=== PATIENT | female | born 1950 | race Hispanic/Latino ===

== ENCOUNTER → 2017-11-03 | Outpatient (CLI) | payer OTHER | LOC: CARD 08:47 | PROVIDERS: ATTEND Family Medicine | DX: R09.89 Other specified symptoms and signs involving the circulatory and respiratory systems (principal) | CPT/HCPCS: 93880 ==

== ENCOUNTER 2018-08-17 14:57 | Inpatient (IN) | payer MEDICARE, OTHER ==
[~2018-08-17] VITALS: Ht 157.5 cm; Wt 68.7 kg
[2018-08-17] MEDS ORDERED: VANCOMYCIN 1GM/NS 250 ML 250 ML IV SCH (15:45)
[2018-08-17] MEDS ORDERED: PIPER-TAZ 3.375 GM 50 ML IV ONE (16:00)
--- NOTE | 2018-08-17 16:27 | Diagnostic Imaging Report ---
FOOT RIGHT COMPLETE - 3 views HISTORY: Infection. Osteomyelitis. COMPARISON: None available. FINDINGS: Bones: No acute displaced fracture. Osseous alignment is within normal limits. Joints: Mild hallux valgus deformity. Degenerative changes of the first metatarsophalangeal joint. Mild degenerative changes of the tarsal joints. Soft tissues: No acute abnormality. IMPRESSION: 1. No acute abnormality. If concern for osteomyelitis remains, consider MRI for further evaluation. 2. Degenerative changes of the first metatarsophalangeal joint. Mild degenerative changes of the tarsal joints. 3. Mild hallux valgus deformity. Signed by: Dr. Guillermo Ocampo M.D. on 08/17/2018 4:23 PM
[2018-08-17] MEDS ORDERED: IBUPROFEN 600 MG TAB PO ONE (17:00)
[2018-08-17 17:08] LABS: BASOPHILS % 0.2 % (0.0-1.0); EOSINOPHILS # (AUTO) 0.1 (0.0-0.4); EOSINOPHILS % 0.7 % (0.0-6.0); HEMATOCRIT 35.9 % (34.2-44.1); LYMPHOCYTES # (AUTO) 0.5 (1.0-3.2); LYMPHOCYTES % 6.2 % (18.0-39.1); MEAN CORPUSCULAR HEMOGLOBIN 29.9 pg (28-32); MEAN CORPUSCULAR HGB CONC 33.4 g/dL (31-35); MEAN CORPUSCULAR VOLUME 89.5 fL (81-99); MONOCYTES # (AUTO) 0.4 (0.2-0.8); MONOCYTES % 5.4 % (4.4-11.3); NEUTROPHILS % 87.3 % (38.7-80.0); PLATELET COUNT 282 x10e3/uL (140-360); RED BLOOD COUNT 4.01 x10e6/uL (3.6-5.1); RED CELL DISTRIBUTION WIDTH 12.6 % (11.7-14.4)
[2018-08-17 17:19] LABS: CLARITY,URINE HAZY (CLEAR); COLOR,URINE YELLOW (YELLOW); KETONES,URINE NEGATIVE (NEGATIVE); LEUKOCYTE ESTERASE ,URINE TRACE (NEGATIVE); NITRITE,URINE NEGATIVE (NEGATIVE); PROTEIN,URINE DIPSTICK TRACE (NEGATIVE)
[2018-08-17 17:20] LABS: BILIRUBIN,URINE 1+ (NEGATIVE); URINE UROBILINOGEN 1 mg/dL (0.2 - 1)
[2018-08-17 17:20] LABS: INR 0.96; PROTHROMBIN TIME 13.7 seconds (11.9-14.5)
[2018-08-17 17:21] LABS: PARTIAL THROMBOPLASTIN TIME 35.3 seconds (23.8-35.5)
[2018-08-17 17:21] LABS: BACTERIA,URINE MODERATE /HPF; EPITHELIAL CELLS,URINE FEW /LPF; RBC,URINE 0-5 /HPF (0-5)
[2018-08-17 17:30] LABS: ALANINE AMINOTRANSFERASE 7 IU/L (0-55); ALBUMIN 3.6 g/dL (3.5-5.0); ALBUMIN/GLOBULIN RATIO 0.9 (0.8-2.0); ALKALINE PHOSPHATASE 82 IU/L (40-150); ANION GAP 14.4 mmol/L (8-16); BLOOD UREA NITROGEN 21 mg/dL (7-26); BUN/CREATININE RATIO 15 (6-25); CALCIUM 9.3 mg/dL (8.4-10.2); CARBON DIOXIDE 27 mmol/L (22-29); CHLORIDE 97 mmol/L (98-107); CREATINE KINASE 343 IU/L (29-168); EST GLOMERULAR FILTRATION RATE 38 ML/MIN (60-); GLUCOSE 182 mg/dL (74-118); MAGNESIUM 1.8 MG/DL (1.3-2.1); POTASSIUM 3.4 mmol/L (3.5-5.1); SODIUM 135 mmol/L (136-145)
[2018-08-17 17:37] LABS: B-TYPE NATRIURETIC PEPTIDE2 27.5 pg/mL (0-100)
[2018-08-17] MEDS ORDERED: ONDANSETRON HCL INJ 2MG/ML 2ML 2 MG/ML VIAL IV PRN (18:00)
[2018-08-17] MEDS ORDERED: KCL 20MEQ/.9 SOD CHL 1,000 ML IV ONE (18:00)
[2018-08-17] MEDS ORDERED: DEXTROSE 50% SYRINGE 50 ML IV PRN (18:00)
--- OUTSIDE RECORDS SUMMARY | 2018-08-17 18:22 | XMS REPORT ---
Author Author [facility] Address Unknown Phone Unavailable Care Team Providers Care Customer Consulting Manager Name Role Phone Justina ONEIL Unavailable Unavailable Problems This patient has no known problems. Allergies, Adverse Reactions, Alerts This patient has no known allergies or adverse reactions. Medications This patient has no known medications. Results Test Description Test Time Test Comments Text Results Atomic Results Result Comments FOOT RIGHT COMPLETE 2018-08-17 16:16:00 [place] [address] Patient Name: LUIS ANGEL LOZANO MR #: [id number] : 1950 Age/Sex: 68/F Req #: [id number] Adm Physician: Ordered by: MANI GARCÍA RETRIEVAL SPECIALIST Report #: [id number] Location: ER Room/Bed: Procedure: [id number] DX/FOOT RIGHT COMPLETE Exam Date: Exam Time: REPORT STATUS: Signed FOOT RIGHT COMPLETE - 3 views HISTORY: Infection. Osteo myelitis. COMPARISON: None available. FINDINGS: Bones: No acute displaced fracture. Osseous alignment is within normal limits. Joints: Mild hallux valgus deformity. Degenerative changes of the first metatarsophalangeal joint. Mild degenerative changes of the tarsal joints. Soft tissues: No acute abnormality. IMPRESSION: 1. No acute abnormality. If concern for osteomyelitis remains, consider MRI for further evaluation. 2. Degenerative changes of the first metatarsophalangeal joint. Mild degenerative changes of the tarsal joints. 3. Mild hallux valgus deformity. Signed by: Dr. Guillermo Guadarrama M.D. on 08/17/2018 4:23 PM Dictated By: PRINCESS GUADARRAMA MD, MD [id number] Transcribed By: SAMMY on 08/17/181622 COPY TO: MANI GARCÍA NP
--- NOTE | 2018-08-17 20:19 | NUR ---
patient instructed to bring home medications, does not know list off hand. no ext med history available
[2018-08-17 20:24] VITALS: BP 104/60
[2018-08-17 20:45] VITALS: BP 104/60
--- NOTE | 2018-08-17 20:45 | NUR ---
Pt admitted to room 292 via stretcher. A&Ox3. Sinhala Speaking. Vs stable. Skin warm and dry. Glasses fixed to face. Diabetic foot ulcer right foot between 2nd and 3rd digits, min drainage, foul odor. Denies pain at this time. 20g IV left AC, patent. Lungs CTA. Cap refill <3 seconds. +2 Equal bilateral remote sensing technologist. Steady gait. Bowels active x4 quads. Last BM 08/17/18. Oriented to room. Call to within reach. Family at bedside. No acute distress noted. Will continue to monitor.
[2018-08-17] MEDS: INSULIN LISPRO 100 UNIT/1 ML 3ML VIAL SQ SCH (21:45)
[2018-08-17] MEDS ORDERED: SODIUM CHLORIDE 0.9% 250ML 250 ML ONE (21:46)
[2018-08-17] MEDS ORDERED: KCL 20MEQ/.9 SOD CHL 1,000 ML IV SCH (22:00)
--- NOTE | 2018-08-17 22:45 | NUR ---
Dr. Gibbs ordered dry dressing, will visit tomorrow. Ordered wound care consult.
[2018-08-17] MEDS ORDERED: AMLODIPINE BESYL5 MG PO (22:58)
[2018-08-17] MEDS ORDERED: LEVOTHYROXINE75 MCG PO (22:58)
[2018-08-17] MEDS ORDERED: PRAVASTATIN SOD20 MG (22:58)
[2018-08-17] MEDS ORDERED: LISINOPRIL10 MG PO (22:58)
[2018-08-17] MEDS ORDERED: NOVOLOG100 UNITS1 (22:58)
[2018-08-17] MEDS: PIPERACILLIN/TAZO 2.25 GM 50 ML IV SCH (23:45)
[2018-08-18] VITALS (8 sets, daily range): BP systolic 106–120; BP diastolic 56–68
[2018-08-18] MEDS: PIPERACILLIN/TAZO 2.25 GM 50 ML IV SCH ×3 (05:27→11:33)
[2018-08-18 05:43] LABS: BASOPHILS % 0.4 % (0.0-1.0); EOSINOPHILS # (AUTO) 0.1 (0.0-0.4); EOSINOPHILS % 1.2 % (0.0-6.0); HEMATOCRIT 31.2 % (34.2-44.1); HEMOGLOBIN 10.8 g/dL (12.0-16.0); LYMPHOCYTES # (AUTO) 0.4 (1.0-3.2); LYMPHOCYTES % 6.6 % (18.0-39.1); MEAN CORPUSCULAR HGB CONC 34.6 g/dL (31-35); MEAN CORPUSCULAR VOLUME 89.7 fL (81-99); MONOCYTES # (AUTO) 0.4 (0.2-0.8); MONOCYTES % 7.8 % (4.4-11.3); NEUTROPHILS # (AUTO) 4.7 (2.1-6.9); NEUTROPHILS % 83.6 % (38.7-80.0); PLATELET COUNT 219 x10e3/uL (140-360); RED BLOOD COUNT 3.48 x10e6/uL (3.6-5.1); RED CELL DISTRIBUTION WIDTH 12.7 % (11.7-14.4)
[2018-08-18 06:15] LABS: ALBUMIN 2.9 g/dL (3.5-5.0); ALBUMIN/GLOBULIN RATIO 0.9 (0.8-2.0); ANION GAP 12.9 mmol/L (8-16); CALCIUM 8.5 mg/dL (8.4-10.2); CREATININE, SERUM 1.47 mg/dL (0.57-1.11); POTASSIUM 3.9 mmol/L (3.5-5.1)
[2018-08-18] MEDS: INSULIN LISPRO 100 UNIT/1 ML 3ML VIAL SQ SCH ×4 (08:00→21:40)
[2018-08-18] MEDS: ASPIRIN 81 MG ENTERIC COATED PO SCH (08:58)
[2018-08-18] MEDS ORDERED: VANCOMYCIN 1GM/NS 250 ML 250 ML IV SCH (09:00)
--- NOTE | 2018-08-18 11:27 | NUR ---
WOUND CARE CONSULTATION - INITIAL EVALUATION Admitted to ER from Home for new onset of Right Foot wound with cellulitis of foot and renal insufficiency. HX: DM, OM+ of Left Foot 2nd toe. WBC5.63 HGB10.8 HCT31.2 NEUT%83.6 LAB203 ALB2.9 IMAGING: -X-Ray of Foot - Inconclusive for OM, Degenerative changes of 1st Met Joint and tarsal joints. WC CONSULTED for Right Foot Wound: -Greek Speaking -Patient noticed ulcer after showering and has been progressively getting worse. Does not know how it happened. -ADA Diet -IV ABX -BS 21 - Conservative PUP -Ambulatory/ Independent -Continent B/B. - Right foot -3rd toe annular ulcer 3g4x5kk with thick/ loose slough. - Probes to bone/ joint. - Edematous Toe, - Periwound macerated, - Redness extends to metatarsals at dorsal foot - Right Foot hot to touch compared to left foot. - Strong Pedal pulses bilaterally, Hair growth same for both feet. - Numbness to Right Hallux and Left 2nd-4th toes. IMPRESSION: Right Foot 3rd Toe ( 3rd Webspace) DFU Grade 3. RECOMMENDATION: 1. Right Foot 3rd Toe (3rd Webspace)DFU Grade 3- - Cleanse wound with NS and 4x4 Gauze - Apply Maxsorb Ag+ and Cover with 4x4 Gauze Daily. 2. Wound Culture 3. Continue Conservative Pressure Ulcer Prevention Protocol. Thank you for consulting with Wound Care. Addendum: 08/18/18 at 1146 by Jake Ledesma RN Amended: Links added.
[2018-08-18] MEDS: PIPER-TAZ 3.375 GM 50 ML IV SCH ×2 (12:02→21:40)
[2018-08-18] MEDS: LACTATED RINGER'S 1,000 ML IV SCH (12:03)
[2018-08-18] MEDS ORDERED: LACTULOSE SYRUP 20 GM/30 ML UDC PO ONE (12:30)
--- NOTE | 2018-08-18 13:19 | NUR ---
Nutrition Screen Note RD Recommendation for Physician: -Continue ADA diet as ordered Plan of Care: RD following, monitoring for tolerance and adequacy Nutrition reason for involvement: Nutrition Risk Trigger MST Primary Diagnose(s): diabetic foot ulcer PMH: DM, OM+ of Left Foot 2nd toe. Ht: 62in Wt: 150lb BMI: 27.4kg/m2 IBW: 110lb RD Assessment: (08/18/2018) Chart reviewed. Labs and meds reviewed. 68yo F, who is admitted for new onset of right foot wound with cellulitis of foot and renal insufficiency. Visited pt in the room. Citizen Of [place] speaking only; RN helped to translate. Pt reports good appetite with no change in PO intake RESEARCH AND DEVELOPMENT SCIENTIST. However, pt has lost ~15-20lbs in the past month. Pt states she doesnt know why she keeps losing weight. UBW ~170lbs. No GI complains noted. LBM 08/13, pt reports hx of chronic constipation and only has a BM every 6-7 days. No chewing or swallowing difficulty noted. No muscle or fat loss upon NFPA. Will continue to monitor and follow. Current Diet: ADA diet Malnutrition Evaluation (08/18/2018) The patient does not meet criteria for a specified degree of malnutrition at this time. Will re-evaluate at follow-up as appropriate. . Energy intake: No change Weight loss: >5% in 1 month (Acute) Fat loss: None upon NFPA Muscle loss: None upon NFPA Supporting Evidence: Fluid accumulation: unable to evaluate Functional Status: no changes Diet Education Needs Assessment: Diet education not indicated. Nutrition Care Level: low Signed: Aleksandra Wells, MS, RD, LD
[2018-08-18] MEDS ORDERED: ACETAMINOPHEN 325 MG TAB PO PRN (16:30)
--- NOTE | 2018-08-18 16:36 | Diagnostic Imaging Report ---
EXAM: Renal Ultrasound INDICATION: Renal failure COMPARISON: None TECHNIQUE: Transverse and longitudinal images of the kidneys and bladder were obtained. FINDINGS: Right Kidney: Length: Measures 10.0 x 4.1 x 5.4 cm Appearance: Normal echogenicity. Collecting system: No hydronephrosis Stones: None Cyst/Mass: None Left Kidney: Length: Measures 9.9 x 5.3 x 4.2 cm Appearance: Normal echogenicity. Collecting system: No hydronephrosis Stones: None Cyst/Mass: None Bladder: Unremarkable appearance. No ureteral jets are visualized. IMPRESSION: Unremarkable renal ultrasound. No evidence of hydronephrosis. Signed by: Dr. Javier Huynh MD on 08/18/2018 4:33 PM
--- NOTE | 2018-08-18 18:52 | Consultation ---
DATE OF CONSULTATION: August 18, 2018 REASON FOR CONSULTATION: Possible osteomyelitis 3rd digit right foot with patient being an insulin-dependent diabetic. HISTORY OF PRESENT ILLNESS: This is a pleasant 68-year-old female who was seen at bedside today who relates that she was presented to Dr. Ng's office and was told to present to the emergency room due to the fact that she was having some fever. She presented to the emergency room yesterday. She was having some fever and chills. She is having still mild fever. Relates that she is feeling better since she has been getting her IV antibiotics. PAST MEDICAL HISTORY: Remarkable for insulin-dependent diabetes x10 plus years, hypertension, hypercholesterolemia. PAST SURGICAL HISTORY: Remarkable for thyroid surgery and appendectomy. ALLERGIES: PATIENT DENIES. CURRENT MEDICATIONS: Note list in chart including IV Zosyn and vancomycin. SOCIAL HISTORY: Denies any smoking, drinking, or recreational drug use. Has 6 kids. Lives with her . FAMILY HISTORY: Remarkable for diabetes. REVIEW OF SYSTEMS CARDIAC: Denies any palpitations or arrhythmias. RESPIRATORY: Denies any shortness of breath or productive cough. GASTROINTESTINAL: Denies any diarrhea or constipation. GENITOURINARY: Denies any hematuria or problems voiding. VITALS: Temp of 101.2, pulse rate 68, respirations 18, blood pressure 111/61, O2 saturation 98%. LABS: Show a white blood cell of 5.6, hemoglobin 10.8, hematocrit 31.2, platelet count of 219. PODIATRIC PHYSICAL EXAMINATION: Reveals the following; VASCULATURE: Pedal pulses both the DP and PT are palpable. CFT to all toes less than 4 seconds. Skin temperature warm to touch. NEUROLOGICAL: Reveals loss of protective sensation when utilizing Marion-José 5.07 monofilament wire. MUSCULOSKELETAL: Reveals muscle mass to be asymmetrical. Some swelling noted to the right foot and leg when compared to the left. DERMATOLOGICAL There is an ulceration lateral aspect 3rd digit right foot measuring 1.5 cm in diameter, tracking down to bone. Foul smell present. The toe is very swollen when compared to the contralateral 3rd digit. X-ray were visualized. No gas in the tissue, questionable for possible osteo. ASSESSMENT: Grade 3 ulcer with possible osteomyelitis with diabetic neuropathy. PLAN: Will continue IV antibiotics. Will start Santyl followed by dilute wet-to-dry Betadine. Continue offloading. Continue treat conservatively. Patient understands if not responsive, may end up needing possible amputation if not responsive. Ulceration will be debrided some time next week. Job#: [id number] TICO
--- NOTE | 2018-08-18 19:40 | NUR ---
PT IS RESTING IN BED. NO RESPIRATORY DISTRESS NOTED. BED IN LOWEST POSITION, LOCKED, BED ALARM ON, AND CALL LIGHT WITHIN REACH. WILL CONTINUE TO MONITOR.
[2018-08-18] MEDS: HEPARIN SOD (PORCINE) 5,000 UNIT/ML VIAL SC SCH (21:39)
[2018-08-19] VITALS (7 sets, daily range): BP systolic 111–142; BP diastolic 61–74
[2018-08-19] MEDS: LACTATED RINGER'S 1,000 ML IV SCH (00:35)
[2018-08-19] MEDS: PIPER-TAZ 3.375 GM 50 ML IV SCH ×4 (05:32→22:03)
[2018-08-19 06:17] LABS: BASOPHILS % 0.6 % (0.0-1.0); EOSINOPHILS # (AUTO) 0.1 (0.0-0.4); EOSINOPHILS % 2.7 % (0.0-6.0); HEMATOCRIT 33.5 % (34.2-44.1); HEMOGLOBIN 10.6 g/dL (12.0-16.0); LYMPHOCYTES # (AUTO) 0.8 (1.0-3.2); MEAN CORPUSCULAR HEMOGLOBIN 29.4 pg (28-32); MEAN CORPUSCULAR HGB CONC 31.6 g/dL (31-35); MEAN CORPUSCULAR VOLUME 93.1 fL (81-99); MONOCYTES # (AUTO) 0.6 (0.2-0.8); MONOCYTES % 11.6 % (4.4-11.3); NEUTROPHILS # (AUTO) 3.2 (2.1-6.9); NEUTROPHILS % 67.7 % (38.7-80.0); PLATELET COUNT 248 x10e3/uL (140-360); RED CELL DISTRIBUTION WIDTH 12.8 % (11.7-14.4)
[2018-08-19 06:34] LABS: ANION GAP 15.1 mmol/L (8-16); CALCIUM 8.5 mg/dL (8.4-10.2); CREATININE, SERUM 1.04 mg/dL (0.57-1.11); POTASSIUM 4.1 mmol/L (3.5-5.1); VANCOMYCIN,TROUGH 8.9 ug/mL (5.0-10.0)
[2018-08-19 06:59] LABS: THYROID STIMULATING HORMONE 3.625 uIU/mL (0.350-4.940)
--- NOTE | 2018-08-19 07:06 | NUR ---
pt asleep, resp even and unlabored this time no distress noted, pt easily aroused at this time, no c/o pain when asked, pt pineda family members at bedside. call light in reach.
[2018-08-19] MEDS: INSULIN LISPRO 100 UNIT/1 ML 3ML VIAL SQ SCH ×4 (07:30→20:34)
[2018-08-19] MEDS: HEPARIN SOD (PORCINE) 5,000 UNIT/ML VIAL SC SCH (09:00)
[2018-08-19] MEDS ORDERED: VANCOMYCIN 1GM/NS 250 ML 250 ML IV SCH (09:00)
[2018-08-19] MEDS: ASPIRIN 81 MG ENTERIC COATED PO SCH (09:00)
[2018-08-19] MEDS: INSULIN DETEMIR 100 UNIT/ML PEN SQ SCH (13:30)
[2018-08-19] MEDS: ENOXAPARIN SOD INJ 40 MG/0.4 ML SYR SC SCH (17:05)
--- NOTE | 2018-08-19 19:08 | Progress Note ---
DATE: August 19, 2018 SUBJECTIVE: Patient seen at bedside accompanied by family members. Feeling she is doing better. Denies any history of fever, chills, nausea, or vomiting. OBJECTIVE VITAL SIGNS: Afebrile, pulse rate 58, respirations 18, blood pressure 115/62, O2 saturation 98%. EXTREMITIES: The toe was looking duskier to the 3rd digit, right foot, ulceration down to bone. Some drainage noted. Patient is growing Strep group G. Pedal pulses are palpable. LABS: Noted. White blood cell count has dropped to 4.76, hemoglobin 10.6, hematocrit 33.5 with a platelet count of 248. ASSESSMENT: Possible osteomyelitis with pregangrenous changes noted on the 4th digit, right foot with a grade IV ulcer measuring 1 cm in diameter on the lateral aspect 3rd digit right. PLAN: We will continue dilute wet-to-dry with Santyl. Continue IV antibiotics such as Zosyn and vancomycin. Ulceration will be debrided tomorrow at bedside. Patient understands. If not responsive, may need further debridement which may even include amputation [id number]. Job#: [id number] RTRahel
--- NOTE | 2018-08-19 19:30 | NUR ---
REPORT GIVEN TO ONCOMING NURSE.
--- NOTE | 2018-08-19 19:33 | Diagnostic Imaging Report ---
FOOT RIGHT COMPLETE HISTORY: Diabetic, cellulitis. Evaluate for osteomyelitis. COMPARISON: Right foot radiographs 08/17/2018 FINDINGS: Bones: No acute displaced fracture. Osseous alignment is within normal limits. Joints: Mild hallux valgus deformity. Scattered degenerative changes, most prominent at the first metatarsal-phalangeal joint. Soft tissues: The soft tissues appear unremarkable. IMPRESSION: No radiographic evidence of osteomyelitis. Recommend follow-up in 6-8 weeks in the setting of continued signs of infection. Signed by: DR. Afshin Torres MD on 08/19/2018 7:30 PM
[2018-08-19] MEDS: VANCOMYCIN 1GM/NS 250 ML 250 ML IV SCH (20:34)
[2018-08-20] VITALS (8 sets, daily range): BP systolic 124–142; BP diastolic 64–80
[2018-08-20] MEDS: PIPER-TAZ 3.375 GM 50 ML IV SCH ×3 (05:06→21:19)
--- NOTE | 2018-08-20 06:50 | NUR ---
rounded with night warehouse selector nurse, patient resting in bed. Patient in no distress, call to within reach and bed in lowest position.
[2018-08-20] MEDS: INSULIN LISPRO 100 UNIT/1 ML 3ML VIAL SQ SCH ×4 (08:10→20:16)
[2018-08-20] MEDS: INSULIN DETEMIR 100 UNIT/ML PEN SQ SCH (09:30)
[2018-08-20] MEDS: VANCOMYCIN 1GM/NS 250 ML 250 ML IV SCH ×2 (09:30→20:09)
[2018-08-20] MEDS: ASPIRIN 81 MG ENTERIC COATED PO SCH (09:30)
[2018-08-20] MEDS: ENOXAPARIN SOD INJ 40 MG/0.4 ML SYR SC SCH (17:30)
[2018-08-20] MEDS: LACTOBACILLUS ACIDOPHILUS CAPSULE PO SCH (17:30)
--- NOTE | 2018-08-20 18:03 | Progress Note ---
DATE: August 20, 2018 SUBJECTIVE: Patient at bedside. Denies any history of fever, chills, nausea, or vomiting. OBJECTIVE VITAL SIGNS: Afebrile. Pulse rate 53, respirations 20, blood pressure 135/76, and O2 saturation 97%. EXTREMITIES: Ulceration has noted to go down to bone measuring 1 cm in diameter on lateral aspect of third digit right foot. Toe still somewhat discolored, but better color than yesterday, still swollen when compared to contralateral third digit. LABS: Show hemoglobin of 10.6 with a platelet count of 248. X-ray report shows no gas in the tissue. ASSESSMENT: Grade 4 ulcer with possible osteo going down to bone with diabetic neuropathy. PLAN: Sharp excisional debridement was carried down sharply utilizing a sterile 10 blade. Devitalized tissue was debrided down to bone. The bone was scraped via sharp dissection utilizing a sterile 10 blade until a good viable bleeding tissue was achieved. Deep cultures were taken for aerobic and anaerobic growth. Santyl followed by dilute wet-to-dry Betadine dressing was applied. We will continue IV antibiotics. Continue local wound care. We will let the foot and toe demarcate. Patient will need at least 2 to 3 more weeks of IV antibiotics. Job#: [id number] RITCHIE
--- NOTE | 2018-08-20 18:40 | NUR ---
report given to instructional supervisor nurse, patient aware of nurse change. Call to within reach and bed in lowest position.
--- NOTE | 2018-08-20 19:00 | NUR ---
patient recieved awake, alert, lying quietly in bed. vss. no c/o pain noted at this time. dressing right foot c,d,i. pm assessment complete. patient belarusian speaking mainly. family noted at the bedside. patient/family instructed to call for assistance when needed.
--- NOTE | 2018-08-20 20:00 | NUR ---
dressing to right foot c,d,i. bedside debridement done today. no c/o pain noted.
[2018-08-21] VITALS: BP 130/70
[2018-08-21 04:10] VITALS: BP 138/67
[2018-08-21 05:33] LABS: BASOPHILS % 0.7 % (0.0-1.0); EOSINOPHILS # (AUTO) 0.1 (0.0-0.4); EOSINOPHILS % 3.2 % (0.0-6.0); HEMATOCRIT 31.9 % (34.2-44.1); HEMOGLOBIN 11.4 g/dL (12.0-16.0); LYMPHOCYTES # (AUTO) 1.5 (1.0-3.2); LYMPHOCYTES % 33.7 % (18.0-39.1); MEAN CORPUSCULAR HEMOGLOBIN 32.9 pg (28-32); MEAN CORPUSCULAR HGB CONC 35.7 g/dL (31-35); MEAN CORPUSCULAR VOLUME 92.2 fL (81-99); MONOCYTES # (AUTO) 0.3 (0.2-0.8); MONOCYTES % 6.2 % (4.4-11.3); NEUTROPHILS # (AUTO) 2.5 (2.1-6.9); PLATELET COUNT 262 x10e3/uL (140-360); RED BLOOD COUNT 3.46 x10e6/uL (3.6-5.1); RED CELL DISTRIBUTION WIDTH 12.5 % (11.7-14.4)
[2018-08-21] MEDS: PIPER-TAZ 3.375 GM 50 ML IV SCH ×3 (05:39→22:00)
[2018-08-21 06:00] LABS: ANION GAP 13.8 mmol/L (8-16); CREATININE, SERUM 0.99 mg/dL (0.57-1.11); POTASSIUM 3.8 mmol/L (3.5-5.1)
[2018-08-21 06:10] LABS: VANCOMYCIN,TROUGH 22.9 ug/mL (5.0-10.0)
--- NOTE | 2018-08-21 06:15 | NUR ---
vancomycin trough 22.9 call placed to re: elevated trough. vancomycin d/c'd per orders.
[2018-08-21 08:00] VITALS: BP_SYST 119; BP_DIAS 58; BP_DIAS 68
[2018-08-21] MEDS: ASPIRIN 81 MG ENTERIC COATED PO SCH (09:23)
[2018-08-21] MEDS: LACTOBACILLUS ACIDOPHILUS CAPSULE PO SCH ×2 (09:23→17:43)
[2018-08-21] MEDS: INSULIN DETEMIR 100 UNIT/ML PEN SQ SCH (09:23)
[2018-08-21] MEDS: INSULIN LISPRO 100 UNIT/1 ML 3ML VIAL SQ SCH ×4 (09:23→21:00)
[2018-08-21] MEDS: COLLAGENASE OINTMENT 30 GM TUBE TP SCH (09:24)
[2018-08-21 12:00] VITALS: BP 144/66
--- NOTE | 2018-08-21 14:25 | Progress Note ---
DATE: August 21, 2018 SUBJECTIVE: Patient at bedside accompanied by family member. Doing better. Denies any history of fever, chills, nausea, or vomiting. OBJECTIVE VITAL SIGNS: Afebrile. Pulse rate 56, respirations 20, blood pressure 119/58, O2 saturation 94%. EXTREMITIES: Ulceration to the right 3rd toe a little bit better. Still some drainage present. Toe is very swollen when compared to contralateral foot and discolored. ASSESSMENT: Grade 3-4 ulceration, possible osteomyelitis with diabetic neuropathy. PLAN: Will continue local wound care. Continue Santyl followed by diluted wet-to-dry Betadine. Continue offloading. Patient understands if not responsive she may end up losing her toe. Job#: [id number] TILA
[2018-08-21 16:00] VITALS: BP 137/73
[2018-08-21] MEDS: ENOXAPARIN SOD INJ 40 MG/0.4 ML SYR SC SCH (17:43)
[2018-08-21 20:00] VITALS: BP 130/61
--- NOTE | 2018-08-21 20:00 | NUR ---
INITIAL ASSESSMENT COMPLETE, PT HAS DRESSING CDI TO RIGHT FOOT, IV TO RIGHT HAND INTACT, BM TODAY, NO PAIN NOTED, NO DISTRESS NOTED, VS STABLE, CALL LIGHT IN REACH.
[2018-08-21] MEDS ORDERED: SODIUM CHLORIDE 0.9% 500ML 500 ML ONE (21:34)
[2018-08-22] VITALS (7 sets, daily range): BP systolic 116–149; BP diastolic 60–76
--- NOTE | 2018-08-22 | NUR ---
PT AWAKE FOR VS AND FAMILY IN ROOM, VS STABLE, CALL LIGHT IN REACH, NO DISTRESS NOTED
[2018-08-22] MEDS: PIPER-TAZ 3.375 GM 50 ML IV SCH (06:00)
--- NOTE | 2018-08-22 06:32 | NUR ---
PT AWAKE FOR VS AND MEDS, VS STABLE, CALL LIGHT IN REACH, NO DISTRESS NOTED
[2018-08-22] MEDS ORDERED: SODIUM CHLORIDE 0.9% 250ML 0 ML ONE (07:19)
[2018-08-22] MEDS: VANCOMYCIN HCL 1.5 GM in SODIUM CHLORIDE 0.9% 250ML 300 ML IV SCH (07:19)
[2018-08-22] MEDS: INSULIN LISPRO 100 UNIT/1 ML 3ML VIAL SQ SCH ×4 (07:30→20:37)
[2018-08-22] MEDS: ASPIRIN 81 MG ENTERIC COATED PO SCH (08:21)
[2018-08-22] MEDS: LACTOBACILLUS ACIDOPHILUS CAPSULE PO SCH ×2 (08:21→17:01)
[2018-08-22] MEDS: COLLAGENASE OINTMENT 30 GM TUBE TP SCH (08:22)
[2018-08-22] MEDS: INSULIN DETEMIR 100 UNIT/ML PEN SQ SCH (08:22)
--- NOTE | 2018-08-22 10:58 | Progress Note ---
DATE: August 22, 2018 SUBJECTIVE: The patient is seen at bedside. Doing okay. Denies any history of fever, chills, nausea or vomiting. OBJECTIVE: Vitals: Afebrile. Pulse rate 50, respirations 16, blood pressure 135/76, O2 saturation 98%. Labs show white blood cell count of 4.39, hemoglobin 11.4, platelet count 262. He still has some discoloration to the 3rd digit, right foot. Ulceration is tracking down to bone. There is some crepitation felt upon range of motion. ASSESSMENT: Osteomyelitis with a grade-4 ulcer with diabetic neuropathy. PLAN: The patient will need 3 to 4 more weeks of IV antibiotics. Will continue local wound care. Patient understands if not responsive, he will end up needing possible amputation of toe. We will try everything to try to salvage it. The patient understands no guarantees can be given. Will continue local wound care. Ulcer debridement may need to be done once again depending on how the patient starts responding. Job#: [id number]
[2018-08-22] MEDS ORDERED: CEFEPIME HCL 1 GM VIAL IV SCH (12:30)
--- NOTE | 2018-08-22 15:43 | Consultation ---
DATE OF CONSULTATION: August 22, 2018 INFECTIOUS DISEASE CONSULTATION Ms. Caldwell is a pleasant, 68-year-old female who is admitted to [facility] through the office of her primary care provider after she complained of having fever and a wound on her right 3rd toe. The patient was seen by a choir singer and had bedside debridement done. Blood culture was negative. Urine culture was negative. The wound grew streptococcus group G. X-ray of the foot showed no radiographic evidence of osteomyelitis on August 19. ALLERGIES: THE PATIENT HAS NO KNOWN ALLERGIES. PAST MEDICAL HISTORY: Includes: 1. Diabetes. 2. Hyperlipidemia. 3. Hypertension listed as past medical history. However, I do not see any blood pressure medication on her SEP. LABORATORY STUDIES: White count 4.39, platelet count 262. Creatinine is 0.99. Vancomycin trough was 22.9 yesterday. REVIEW OF SYSTEMS: No nausea, vomiting, fever, chills, chest pain, shortness of breath. PHYSICAL EXAMINATION GENERAL: Alert and oriented in bed. The patient is seen with the assistance of the staff. CVS: S1 and S2. CHEST: Clear to auscultation, equal expansion, no acute distress. ABDOMEN: Soft, nontender. No distention. Bowel sounds positive in 4 quadrants. HEENT: Moist. No pallor. No JVD. EXTREMITIES: No significant edema. However, there is a swollen right 3rd toe with ulceration on the lateral side. It seems to be deep. Not malodorous and no pus noted to be draining. The toe is swollen and seems to be pink, almost too close to the ankle. ASSESSMENT AND PLAN: This is a pleasant, 68-year-old female admitted to [facility] in [place], [place], with complaint of fever and wound on the right 3rd toe. Blood cultures are negative. Urine culture is negative. Wound is growing streptococcus. X-rays negative for osteomyelitis. Discussed with Dr. Herrmann. She came with some mild renal insufficiency. However, the creatinine has recovered, and the creatinine level is at 0.99. The patient has slightly elevated vancomycin level, which was already adjusted by others. This case was discussed with Dr. Herrmann in detail. She is currently on Zosyn and vancomycin. Will change the antibiotics to vancomycin and cefepime. We may have to change the antibiotics again soon. We will order an MRI. Overall with a poor prognosis, and she may end up losing her toe. Again, this was discussed with Dr. Herrmann. Dictated by KAYLA Deng Job#: [id number]
--- NOTE | 2018-08-22 16:27 | NUR ---
Met with pt with her nurse Mishel RN who speaks Maldivian. Discussed order for LTAC. She agreed and family at bedside agreed. Signed choice letter, MOT initiated. Wants to go to [facility].
[2018-08-22] MEDS: ENOXAPARIN SOD INJ 40 MG/0.4 ML SYR SC SCH (17:01)
[2018-08-22] MEDS: CEFEPIME 1GM/NS 0.9% 50 ML 50 ML IV SCH (20:44)
[2018-08-23] VITALS (8 sets, daily range): BP systolic 128–146; BP diastolic 63–73
[2018-08-23] MEDS: VANCOMYCIN HCL 1.5 GM in SODIUM CHLORIDE 0.9% 250ML 300 ML IV SCH (06:20)
--- NOTE | 2018-08-23 06:55 | NUR ---
rounded with emr trainer nurse, patient aware of change. Patient in no distress and call to within reach.
[2018-08-23] MEDS: INSULIN LISPRO 100 UNIT/1 ML 3ML VIAL SQ SCH ×4 (07:30→20:35)
--- NOTE | 2018-08-23 08:05 | Progress Note ---
DATE: August 23, 2018 SUBJECTIVE: Patient seen at bedside, accompanied by . Doing well. Denies any history of fever, chills, nausea, or vomiting. OBJECTIVE: VITAL SIGNS: Afebrile, pulse rate 56, respirations 17, blood pressure 130/67, O2 saturation of 96%. EXTREMITIES: Ulceration to the third digit of the right foot laterally is closing slowly. It is tracking down to bone. Periwound cellulitis present. Bone exposed to the ulceration. ASSESSMENT: Grade 4 ulcer with osteo with diabetic neuropathy. PLAN: Will continue local wound care, continue IV antibiotics for next 3 to 4 weeks. Will treat conservatively for now. Patient understands amputation may need to be done if not responsive down the road. Job#: [id number]
[2018-08-23] MEDS: ASPIRIN 81 MG ENTERIC COATED PO SCH (09:00)
[2018-08-23] MEDS: INSULIN DETEMIR 100 UNIT/ML PEN SQ SCH (09:00)
[2018-08-23] MEDS: CEFEPIME 1GM/NS 0.9% 50 ML 50 ML IV SCH ×2 (09:00→20:35)
[2018-08-23] MEDS: COLLAGENASE OINTMENT 30 GM TUBE TP SCH (09:00)
[2018-08-23] MEDS: LACTOBACILLUS ACIDOPHILUS CAPSULE PO SCH ×2 (09:00→16:50)
[2018-08-23] MEDS: ENOXAPARIN SOD INJ 40 MG/0.4 ML SYR SC SCH (16:50)
--- NOTE | 2018-08-23 19:05 | NUR ---
rounded with slot shift supervisor nurse, patient aware of change and in no distress. Call to within reach and bed in lowest position.
--- NOTE | 2018-08-23 19:07 | NUR ---
Report received and walking rounds complete. Pt resting in bed and in no apparent distress. Family members in room visiting. Pt vietnamese speaking only. All safety measures ensured.
[2018-08-24] VITALS (7 sets, daily range): BP systolic 132–179; BP diastolic 60–82
[2018-08-24 05:43] LABS: BASOPHILS % 0.5 % (0.0-1.0); EOSINOPHILS # (AUTO) 0.1 (0.0-0.4); EOSINOPHILS % 1.7 % (0.0-6.0); HEMATOCRIT 34.4 % (34.2-44.1); HEMOGLOBIN 11.1 g/dL (12.0-16.0); LYMPHOCYTES # (AUTO) 1.9 (1.0-3.2); LYMPHOCYTES % 29.9 % (18.0-39.1); MEAN CORPUSCULAR HEMOGLOBIN 29.4 pg (28-32); MEAN CORPUSCULAR HGB CONC 32.3 g/dL (31-35); MEAN CORPUSCULAR VOLUME 91.2 fL (81-99); MONOCYTES # (AUTO) 0.4 (0.2-0.8); MONOCYTES % 6.2 % (4.4-11.3); NEUTROPHILS # (AUTO) 3.8 (2.1-6.9); NEUTROPHILS % 61.1 % (38.7-80.0); PLATELET COUNT 302 x10e3/uL (140-360); RED BLOOD COUNT 3.77 x10e6/uL (3.6-5.1); RED CELL DISTRIBUTION WIDTH 12.6 % (11.7-14.4)
--- NOTE | 2018-08-24 06:50 | NUR ---
rounded with shift lab technician nurse, patient aware of change and in no distress. Resting in bed with family member at bedside, call to within reach.
--- NOTE | 2018-08-24 07:05 | NUR ---
Report given to day shift nurse and walking rounds complete.
[2018-08-24] MEDS: VANCOMYCIN HCL 1.5 GM in SODIUM CHLORIDE 0.9% 250ML 300 ML IV SCH (07:16)
[2018-08-24] MEDS ORDERED: SODIUM CHLORIDE 0.9% 250ML 250 ML ONE (07:22)
[2018-08-24] MEDS: INSULIN LISPRO 100 UNIT/1 ML 3ML VIAL SQ SCH ×4 (07:30→21:00)
--- NOTE | 2018-08-24 08:13 | Diagnostic Imaging Report ---
TECHNIQUE: Magnetic resonance imaging of the RIGHT foot (forefoot) was performed WITHOUT injected contrast. HISTORY: Cellulitis, diabetic, ulcer, concern for osteomyelitis COMPARISON: Right foot radiograph August 17, 2018 DISCUSSION: Bone: Bone marrow edema and decreased fatty marrow signal involving the majority of the third middle and proximal phalanges, most notably about the proximal interphalangeal joint. Bone marrow edema of the third distal phalanx with mild patchy decreased fatty marrow signal, more confluent at the plantar base. Joints: Dorsal dislocation of the base of the third middle phalanx. Synovitis and trace effusion of the third proximal interphalangeal joint. Moderate hallux valgus deformity and associated degenerative changes. Soft Tissues: Soft tissue edema, most notably the third digit. No drainable abscess. IMPRESSION: 1. Osteomyelitis of the third middle and proximal phalanges with presumed associated septic arthropathy of the proximal interphalangeal joint. 2. Reactive bone marrow edema of the third distal phalanx with high probability of minimal focal osteomyelitis of the base. 3. No soft tissue abscess. Signed by: Dr. Jake Issa D.O., M.M.M. on 08/24/2018 8:09 AM
[2018-08-24] MEDS: LACTOBACILLUS ACIDOPHILUS CAPSULE PO SCH ×2 (09:12→16:58)
[2018-08-24] MEDS: INSULIN DETEMIR 100 UNIT/ML PEN SQ SCH (09:12)
[2018-08-24] MEDS: COLLAGENASE OINTMENT 30 GM TUBE TP SCH (09:12)
[2018-08-24] MEDS: CEFEPIME 1GM/NS 0.9% 50 ML 50 ML IV SCH ×2 (09:12→21:13)
[2018-08-24] MEDS: ASPIRIN 81 MG ENTERIC COATED PO SCH (09:12)
--- NOTE | 2018-08-24 09:39 | Progress Note ---
DATE: August 24, 2018 SUBJECTIVE: Patient seen at bedside. Doing okay, seen accompanied by daughter. Denies any history of fever, chills, nausea, or vomiting. OBJECTIVE VITAL SIGNS: Afebrile. Pulse rate 52, respirations 18, blood pressure 179/70, O2 saturation 97%. LABS: White blood cell count 6.29, hemoglobin 11.1, platelet count of 302. Has a blood glucose of 147. Ulceration to the lateral aspect of 3rd digit right foot is looking better. Granular base noted. There is still some drainage noted. Still some crepitation felt upon squeezing from top to bottom at the proximal interphalangeal joint with the toe very swollen when compared to contralateral 3rd toe. ASSESSMENT: Osteomyelitis with a grade-4 ulcer healing slowly, responding to IV antibiotics. PLAN: Will continue IV antibiotics and local wound care with Santyl followed by dilute wet-to-dry. Patient awaiting possible transfer to [place] for continued IV antibiotics. Will continue to follow. Job#: [id number]
[2018-08-24] MEDS: AMLODIPINE BESYLATE 5 MG TAB PO SCH (11:59)
[2018-08-24] MEDS: LISINOPRIL 10 MG TAB PO SCH (11:59)
--- NOTE | 2018-08-24 14:41 | NUR ---
CM CALLED BY PATRICE AT [facility] STATING PT WAS DENIED BY INSURANCE FOR LTAC PATRICE CALLED DR TONY AND NOTIFIED HIM DR TONY CALLING DR ZULETA TO ASK IF HE WILL DO PEER TO PEER CM TO FOLLOW
[2018-08-24] MEDS: ENOXAPARIN SOD INJ 40 MG/0.4 ML SYR SC SCH (16:50)
--- NOTE | 2018-08-24 18:51 | Diagnostic Imaging Report ---
EXAM: XR CHEST 1 VIEW DATE: 08/24/2018 6:05 PM INDICATION: PICC line placement COMPARISON: None FINDINGS: Lines and Tubes: Right PICC line present with tip overlying subclavian vein. Heart and Mediastinum: No acute cardiomediastinal findings. Lungs and Pleura: Probable basilar atelectasis. While evaluation is limited given positioning, no distinct pneumothorax is identified. Bones and Soft Tissues: No acute findings. IMPRESSION: 1. Right PICC tip overlying right subclavian vein. Signed by: Dr. Keshawn Polo MD on 08/24/2018 6:47 PM
--- NOTE | 2018-08-24 18:55 | NUR ---
rounded with residential program manager nurse, patient aware of change. Patient in no distress and call to within reach.
--- NOTE | 2018-08-24 19:43 | NUR ---
RECEIVED PT IN BED AOX3.CELLULITIS TO THE 2ND AND3RD TOES OF THE RT FOOT .DENIES PAIN.FAMILY AT THE BEDSIDE .CALL LIGHT WITH IN REACH .CONTINUE TO MONITOR . .
--- NOTE | 2018-08-24 20:30 | Diagnostic Imaging Report ---
EXAM: XR CHEST 1 VIEW DATE: 08/24/2018 7:09 PM INDICATION: Right PICC line COMPARISON: Same day at 1838 FINDINGS: Lines and Tubes: Tip of right PICC cavoatrial junction. Heart and Mediastinum: No acute cardiomediastinal findings. Lungs and Pleura: No significant pleural effusion, pneumothorax, or focal consolidation. Bones and Soft Tissues: No acute findings. IMPRESSION: 1. Right PICC as above. Signed by: Dr. Keshawn Polo MD on 08/24/2018 8:27 PM
[2018-08-25] VITALS: BP 155/83
[2018-08-25 04:00] VITALS: BP 127/75
--- NOTE | 2018-08-25 05:55 | NUR ---
PT RESTING PICCI LINE AT THE RT UPPER ARM INTACT .DENIES PAIN FAMILY AT THE BEDSIDE .CALL LIGHT WITH IN REACH
--- NOTE | 2018-08-25 07:06 | NUR ---
REPORT GIVEN TO THE ONCOMING NURSE
[2018-08-25 07:14] LABS: ANION GAP 13.4 mmol/L (8-16); BLOOD UREA NITROGEN 15 mg/dL (7-26); BUN/CREATININE RATIO 17 (6-25); CALCIUM 8.9 mg/dL (8.4-10.2); CARBON DIOXIDE 26 mmol/L (22-29); CHLORIDE 105 mmol/L (98-107); CREATININE, SERUM 0.89 mg/dL (0.57-1.11); EST GLOMERULAR FILTRATION RATE > 60 ML/MIN (60-); GLUCOSE 135 mg/dL (74-118); POTASSIUM 3.4 mmol/L (3.5-5.1); SODIUM 141 mmol/L (136-145)
[2018-08-25] MEDS: INSULIN LISPRO 100 UNIT/1 ML 3ML VIAL SQ SCH ×3 (07:30→16:30)
[2018-08-25 08:00] VITALS: BP 140/73
[2018-08-25 08:01] VITALS: BP 140/73
[2018-08-25] MEDS: AMLODIPINE BESYLATE 5 MG TAB PO SCH (08:30)
[2018-08-25] MEDS: LISINOPRIL 10 MG TAB PO SCH (08:30)
[2018-08-25] MEDS: LACTOBACILLUS ACIDOPHILUS CAPSULE PO SCH ×2 (09:00→17:00)
[2018-08-25] MEDS: VANCOMYCIN HCL 1.5 GM in SODIUM CHLORIDE 0.9% 250ML 300 ML IV SCH (09:00)
[2018-08-25] MEDS: INSULIN DETEMIR 100 UNIT/ML PEN SQ SCH (09:00)
[2018-08-25] MEDS: ASPIRIN 81 MG ENTERIC COATED PO SCH (09:00)
[2018-08-25] MEDS: COLLAGENASE OINTMENT 30 GM TUBE TP SCH (10:00)
[2018-08-25] MEDS: CEFEPIME 1GM/NS 0.9% 50 ML 50 ML IV SCH (10:00)
--- NOTE | 2018-08-25 10:02 | Progress Note ---
DATE: August 25, 2018 SUBJECTIVE: Patient at bedside, doing somewhat better. Denies any history of fever, chills, nausea, or vomiting. OBJECTIVE VITAL SIGNS: Afebrile. Pulse rate 50, respiration 18, blood pressure 140/73, O2 saturation 99%. Labs noted. Blood glucose of 135. EXTREMITIES: Ulceration to the 3rd digit, right foot, healing very slowly. Some granulation tissue noted. Some drainage present. The toe is very loose upon range of motion at the proximal phalangeal joint when compared to adjacent toes and also contralateral foot. The toe is very swollen with the ulcer tracking to bone. ASSESSMENT: Osteomyelitis with a grade-4 ulcer with cellulitis. PLAN: Patient will need 3 to 4 weeks of IV antibiotics to try to salvage toe. Will continue local wound care. Further debridement may be needed and patient will also benefit from hyperbaric oxygen. Job#: [id number] AIDEN
[2018-08-25 12:14] VITALS: BP 144/80
--- NOTE | 2018-08-25 14:31 | NUR ---
PEER TO PEER DONE BY DR ZULETA FOR [facility] AND DENIAL OVERTURNED DR TONY NOTIFIED DC ORDERS NURSE TUNDE NOTIFIED SHARONMUKESH ARANGO FROM [place] WILL CALL MOT TO FLOOR MOT IN PATIENTS PACKET AT DESK
--- NOTE | 2018-08-25 14:41 | NUR ---
WOUND CARE CONSULTATION - FOLLOW UP -Right Foot 2nd toe OM+ - IV ABX In Progress. - Dewayne arroyo 08/25/18 for continued abx, hyperbaric therapy and continued wound care. - HX: DM. OM+ of Left Foot 2nd toe. VISIT: -Wel[place] Speaking richy davi. -AAOX4 - Pt understands and able to verbalize treatment plan to LTC for cont abx and wc . - ADA Diet - verbalizes good appetite. - BS 21 - No Pressure Ulcers Identified IMPRESSION: - Right foot 2nd toe- DFU Grade 3 -Healing. with some maceration to periwound. 100% granulated - probes to bone. RECOMMENDATION: 1. Right Foot 2nd Toe - DFU Grade 3 - w/100% granulated tissue - Consider Silver Alginate Dressings Daily due to Maceration. If Santyl is desired treatment of choice for continuous microdebriedement of granulation then consider topping with plain alginate to address maceration at periwound. . If Santyl is not an option at next level of care, can use Medihoney and cover with Algisite as a substitute on a daily basis. Thank you for consulting with Wound Care. Addendum: 08/25/18 at 1454 by Jake Ledesma RN Amended: Links added.
[2018-08-25 16:17] VITALS: BP 140/71
[2018-08-25] MEDS: ENOXAPARIN SOD INJ 40 MG/0.4 ML SYR SC SCH (17:00)
--- NOTE | 2018-08-25 18:40 | NUR ---
PT DISCHARGED TO [facility],VIA [facility],PICC LINE IN PLACE PATENT.
[2018-08-25] MEDS ORDERED: VANCOMYCIN 1GM/NS 250 ML 250 ML IV SCH (21:00)
== END 2018-08-25 18:37 | DRG 629 ==
LOC: ER 14:57 → ERHOLD 17:58 → MED/SURG3 20:24
PROVIDERS: ADMIT Internal Medicine; ATTEND Internal Medicine
PROC: 0QBN0ZZ Excision of Right Metatarsal, Open Approach (ICD-10-PCS; 2018-08-20)
PROC: 02HV33Z Insertion of Infusion Device into Superior Vena Cava, Percutaneous Approach (ICD-10-PCS; principal; 2018-08-24)
DX: E11.69 Type 2 diabetes mellitus with other specified complication (principal); M86.8X7 Other osteomyelitis, ankle and foot; M00.271 Other streptococcal arthritis, right ankle and foot; Z79.4 Long term (current) use of insulin; E78.5 Hyperlipidemia, unspecified; E11.40 Type 2 diabetes mellitus with diabetic neuropathy, unspecified; B95.4 Other streptococcus as the cause of diseases classified elsewhere; N17.9 Acute kidney failure, unspecified; E11.65 Type 2 diabetes mellitus with hyperglycemia; K59.00 Constipation, unspecified; E11.621 Type 2 diabetes mellitus with foot ulcer; L97.514 Non-pressure chronic ulcer of other part of right foot with necrosis of bone
CPT/HCPCS: 36415; 36569; 71045; 76770; 80048; 80053; 80202; 81001; 82550; 82553; 82948; 83605; 83735; 83880; 84443; 84484; 85025; 85610; 85730; 87040; 87071; 87086; 87205; 93005; 96367; 96372; 99284; J0692; J1644; J1650; J2543; J3370; J7040; J7050; J7121